=== PATIENT | female | born 1970 | race Caucasian/White ===

== ENCOUNTER 2020-07-04 16:14 | Inpatient (IN) | payer MEDICAID, SELFPAY ==
[2020-07-04 16:14] VITALS: BP 124/77; PULSE 97; RESP 16; TEMP 36.3; O2SAT 99
[2020-07-04 16:15] VITALS: BP 124/77; PULSE 96; RESP 18; TEMP 36.3; O2SAT 100; BMI 18.2
--- NOTE | 2020-07-04 16:31 | ED.VISSUMM ---
- ER Visit Summary Date of Service: 07/04/20 Chief Complaint: Detox from heroin History of Present Illness: The patient is a 49 F with no primary care physician. She reports that she snorts heroin and occasionally smokes crack cocaine. She denies any IV drug abuse. Last use of crack was yesterday. Last use of heroin was at 7:00 this morning. States that she is unsure whether it is heroin or fentanyl. Patient went through detox 1 year ago and was clean for approximately 6 months. Review of systems patient planes of chills and nausea from withdrawal. She denies any other complaints. Physical Examination: Vitals: Stable. Afebrile. General: Well-nourished and well-developed. Head: Normocephalic atraumatic. Neck: Supple, no lymphadenopathy. No JVD. Nontender. Cardiovascular: Regular rate and rhythm. No murmurs. Respiratory: No respiratory distress. Clear to auscultation bilaterally. Abdominal: Soft, nontender, nondistended, normal bowel sounds. No guarding, rebound, or peritoneal signs. Back: Nontender. Extremities: Nontender, no edema. Skin: Normal color, no rash. Neurologic: Alert and oriented ?3. Cranial nerves II through XII are intact. Normal strength and sensation. Psych: Normal affect. Test Results: [] Emergency Department Course and Treatment: Patient refused nausea medications. She is resting comfortably. Treatment Plan: Patient will be discussed the hospitalist and admitted for further evaluation and treatment. Disposition: Admitted in stable condition. Impression: 1. Opiate abuse. This note was generated with [employer] dictation software. It may contain incorrect words, spelling, and punctuation that were not noted in review of the chart prior to signing ED Disposition - Plan for ED Patient: Referrals: Care Physician,No Primary [Primary Care Provider] -
[2020-07-04 16:57] VITALS: BP 124/77; PULSE 96; RESP 18; TEMP 36.3; O2SAT 100
[2020-07-04 16:58] LABS: Absolute Lymphocyte Count 1.11 X10^3/uL (0.83-4.51); Absolute Neutrophil Count 3.9 X10^3/uL (2.0-7.7); Basophil# 0.02 X10^3/uL; Basophil% 0.4 % (0-1); Eosinophil# 0.04 X10^3/uL; Eosinophils% 0.8 % (0-5); Hematocrit 42.8 % (37-47); Hemoglobin 14.2 g/dL (12.0-15.0); Lymphocyte # 1.11 X10^3/ul (4.0); Lymphocyte % 21.3 % (19-41); Mean Corp Hgb Conc 33.2 g/dL (32-36); Mean Corpuscular Hgb 30.6 pg (27.0-32.0); Mean Corpuscular Volume 92.2 fL (81-99); Mean Platelet Vol. 9.9 fl (6.2-12.0); Monocyte# 0.18 X10^3/uL; Monocyte% 3.5 % (0-10); NRBC Flagged by Analyzer 0 % (0-5); Neutrophil # 3.85 X10^3/uL (2.7-7.7); Neutrophil % 73.8 % (47-70); Platelet Count 149 K/mm3 (150-450); RBC Distribution Width CV 13.9 % (11.6-14.6); RBC Distribution Width SD 47.4 fl (35.1-43.9); Red Blood Count 4.64 M/mm3 (4.2-5.4); White Blood Count 5.2 K/mm3 (4.4-11.0)
--- NOTE | 2020-07-04 17:00 | CM.ED ---
SOCIAL WORK Reason for Consult: Substance Abuse Met with patient in room. Patient requesting detox from heroin. Patient states last use was 7am today. Patient states has been battling opiate addiction for several years and has never been to detox/rehab. Educated patient on [facility]. Patient voices no questions or concerns at this time. This worker to update [facility] Treatment Navigator upon admission. Plan: Admit to [facility] Theodore Vega, RESIDENT BUYER, MOLDED RUBBER GOODS CUTTER
[2020-07-04 17:09] LABS: International Normalized Ratio 1.1; Prothrombin Time (Protime)PT. 13.7 SECONDS (11.7-14.9)
[2020-07-04 17:18] LABS: ALB/GLOB Ratio 0.9 RATIO (0.9-2.4); AST(SGOT) 17 U/L (15-37); Alanine Aminotransfer ALT/SGPT 16 U/L (13-56); Albumin, Serum 3.9 g/dL (3.2-5.0); Alkaline Phosphatase 70 U/L (45-117); Anion Gap 3 (5-15); BUN 13 mg/dL (7-18); BUN/Creat Ratio 15.6 RATIO (10-20); Calcium,Total 9.3 mg/dL (8.5-10.1); Chloride 103 mmol/L (98-107); Creatinine, Serum 0.83 mg/dL (0.55-1.02); EST Glomerular Filtration Rate 77 mL/min (>60); Est Glom Filt Rate - Afr Amer 94 mL/min (>60); Estimated Creatinine Clearance 65.17 ml/min; Globulin 4.2 g/dL (2.2-4.2); Glucose 134 mg/dL (74-106); Potassium 3.8 mmol/L (3.5-5.1); Protein, Total 8.1 g/dL (6.4-8.2); Sodium Level 135 mmol/L (136-145)
[2020-07-04 17:24] LABS: Amphetamine Urine VISTA NEGATIVE (<1000 ng/mL); Barbiturate Urine VISTA NEGATIVE (< 200 ng/mL); Benzodiazepine Urine VISTA NEGATIVE (< 200 ng/mL); Cocaine Urine VISTA POSITIVE (< 300 ng/mL); Ecstacy Urine VISTA NEGATIVE (< 500 ng/mL); Methadone Urine VISTA NEGATIVE (< 300 ng/mL); PCP Urine VISTA NEGATIVE (< 25 ng/mL); THC Urine VISTA NEGATIVE (< 50 ng/mL); Vista UDS pH Range 6
[2020-07-04 17:27] LABS: Alcohol, Blood (Medical)-Serum < 3.0 mg/dL
[2020-07-04 17:29] LABS: Internal QC Validated? YES +Cl - CLEAR BKGD; Pregnancy, Serum, hCG Quali. NEGATIVE Negative
--- NOTE | 2020-07-04 18:00 | ED.RN ---
called lab to verify if they had the urine tubes sent down for a UA. Urine is down there Lab to run test.
[2020-07-04 18:01] LABS: Bacteria 0 SEEN /hpf (None Seen); Mucous, Urine 0 SEEN /hpf (<or=2+); White Blood Cells 0 SEEN /hpf (0-5)
[2020-07-04 18:05] LABS: Color, Urine Yellow (Yellow); Glucose, Dipstick Normal (Normal); Ketone-Dipstick Negative (Negative); Leukocyte Esterase-Dipstick Negative /ul (Negative); Nitrite-Dipstick Negative (Negative); Occult Blood-Urine 10 /ul (Negative); Protein-Dipstick Negative (Negative); Urine Bilirubin Dipstick Negative (Negative); Urine Clarity Sl. Cloudy (Clear); Urine Urobilinogen Normal (Normal)
[2020-07-04 18:15] VITALS: BMI 17.9
[2020-07-04 18:17] VITALS: BP 102/65; PULSE 88; RESP 16; TEMP 36.9; O2SAT 100
[2020-07-04 18:20] VITALS: BMI 17.9
[2020-07-04 18:20] LABS: Red Blood Cells-Urine 0-5 SEEN /hpf (0-5); Squamous Epithelial Cells - UA 0-5 SEEN /hpf (5-10)
--- NOTE | 2020-07-04 18:35 | CM.ED ---
SOCIAL WORK Attempted multiple times to contact [facility] Treatment Navigator to update on patient's admission. Unable to leave message. Call to Gabby with [facility]. Left message on confidential voicemail updating on patient's admission to [facility]. Theodore Vega, ENGINEERING INSPECTION ASSISTANT, FURNACE FITTER
[2020-07-04] MEDS: Gabapentin 300 MG Capsule PO (18:59)
[2020-07-04] MEDS: Methocarbamol 750 MG Tablet 1500 MG PO (18:59)
[2020-07-04] MEDS: Buprenorphine HCl 2 MG TAB.SUBL SL (19:03)
--- NOTE | 2020-07-04 19:35 | HP.PCM_ITS ---
Problem List (1) Acute opioid withdrawal syndrome Status: Acute (2) Chronic opioid use and dependence Status: Chronic (3) Chronic nicotine use and dependence Status: Chronic (4) Chronic cigarette smoker Status: Chronic History of Present Illness Date of Admission: 07/04/20 Chief Complaint: Opioid use and withdrawal symptoms The patient is a 49 year old F with history of chronic opioid use, snorts heroin about 1 g daily and sometimes smokes crack cocaine came to ER for opioid withdrawal symptoms. Patient is having tremors, shaking's, restlessness, anxiety, diffuse muscle aches and pains. Denies diarrhea, nausea or vomiting. Patient denies IV heroin use. She denies history of HIV, hepatitis B or C. Patient last use of crack cocaine and heroin was yesterday. Patient had last detox about a year ago and was clean for 6 months and then relapsed. [] Past Medical History Past Medical History (Chronic Problems): Chronic Problems Chronic opioid use and dependence (Chronic) Chronic nicotine use and dependence (Chronic) Chronic cigarette smoker (Chronic) Allergies No Known Allergies Allergy (Verified 07/04/20 16:18) Smoking Status: Current every day smoker Tobacco Use: Cigarettes - *Family History Paternal History Items: Unknown Review of Systems Constitutional: Reports: Chills, Malaise, Weakness, Fatigue. Denies: Fever, Weight Change HEENT: Denies: Head Aches, Sinus Congestion, Sinus Drainage Cardiovascular: Denies: Chest Pain, Palpitations Respiratory: Denies: Cough, Shortness of breath at rest, Sputum production Gastrointestinal: Reports: Nausea. Denies: Abdominal Pain, Constipation, Diarrhea, Dyspepsia, Hematemesis, Hematochezia, Melena, Vomiting Genitourinary: Denies: Dysuria, Frequency, Hematuria, Urgency Musculoskeletal: Denies: Joint Pain, Joint Tenderness Skin: Denies: Rash, Wounds Neurological: Denies: Numbness, Tingling, Focal weakness Psychiatric: Reports: Anxiety, Depression. Denies: Homicidal Ideations, Suicidal Ideations Hematologic/ Lymphatic: Denies: Easy Bruising, Easy Bleeding VTE Information - Inpt Only VTE Present on Admission: No VTE Mechan Device Prophylaxis: None VTE Pharm Prophylaxis ordered?: Yes Objective: Physical exam General: Alert, Oriented x3, Cooperative, low body weight BMI 17.9 kg/m? HEENT: Atraumatic, PERRLA, EOMI, Normocephalic Oral: No Gingival or Mucosal Lesions/ Ulcerations Neck: Supple, No JVD, Negative Carotid Bruits Lungs: Air entry equal in bilateral lung bases. No crepitation/rhonchi Cardiovascular: Regular rate, Regular Rhythm, Normal S1, Normal S2, No murmurs Abdomen: Bowel Sounds Present, Soft, Non Tender, Non-Distended : No renal angle tenderness. No suprapubic tenderness. Extremities: Tremors and shaking in all 4 extremities. No edema, Capillary Refill Less than 3 Seconds Skin: No rashes, No breakdown Musculoskeletal: No Tenderness to Palpation of Joints or Extremities Neurological: Cranial nerves II-XII grossly intact, Deep Tendon Reflexes 2+/4 and Symmetrical, Neuro grossly intact Psych/Mental Status: Restless, anxious. Denies suicidal ideation, attempt. - Physical Exam Vitals/I&O's: Vital Signs Temp Pulse Resp BP Pulse Ox 98.4 F 88 16 102/65 100 07/04/20 18:17 07/04/20 18:17 07/04/20 18:17 07/04/20 18:17 07/04/20 18:17 Oxygen Delivery Method Room Air Weight: 107 lb 6.4 oz Body Mass Index (BMI) 17.9 Laboratory Results 07/04/20 16:45: WBC 5.2, RBC 4.64, Hgb 14.2, Hct 42.8, MCV 92.2, MCH 30.6, MCHC 33.2, RDW Std Deviation 47.4 H, RDW Coeff of Alex 13.9, Plt Count 149 L, MPV 9.9, Immature Gran % (Auto) 0.200, Neut % (Auto) 73.8 H, Lymph % (Auto) 21.3, [place] % (Auto) 3.5, Eos % (Auto) 0.8, Baso % (Auto) 0.4, Absolute Neuts (auto) 3.9, Absolute Lymphs (auto) 1.11, Nucleated RBC % 0 07/04/20 16:45: Sodium 135 L, Potassium 3.8, Chloride 103, Carbon Dioxide 29.0, Anion Gap 3 L, BUN 13, Creatinine 0.83, Estim Creat Clear Calc 65.17, Est GFR (MDRD) Af Amer 94, Est GFR (MDRD) Non-Af 77, BUN/Creatinine Ratio 15.6, Glucose 134 H, Calcium 9.3, Total Bilirubin 0.50, AST 17, ALT 16, Alkaline Phosphatase 70, Total Protein 8.1, Albumin 3.9, Globulin 4.2, Albumin/Globulin Ratio 0.9 07/04/20 16:45: Ethyl Alcohol < 3.0 07/04/20 16:45: PT 13.7, INR 1.1 07/04/20 16:45: Serum , Qual NEGATIVE 07/04/20 16:50: Urine Opiates Screen NEGATIVE, Urine Methadone Screen NEGATIVE, Ur Barbiturates Screen NEGATIVE, Ur Phencyclidine Scrn NEGATIVE, Ur Amphetamines Screen NEGATIVE, U Methamphetamin-MDMA NEGATIVE, U Benzodiazepines Scrn NEGATIVE, Urine Cocaine Screen POSITIVE H, U Cannabinoids Screen NEGATIVE, Ur Drug Screen Comment 07/04/20 16:50: Urine Color Yellow, Urine Clarity Sl. Cloudy, Urine pH 7.0, Ur Specific [place] 1.010, Urine Protein Negative, Urine Glucose (UA) Normal, Urine Ketones Negative, Urine Occult Blood 10 H, Urine Nitrite Negative, Urine Bilirubin Negative, Urine Urobilinogen Normal, Ur Leukocyte Esterase Negative, Urine RBC 0-5 SEEN, Urine WBC 0 SEEN, Ur Squamous Epith Cells 0-5 SEEN, Urine Bacteria 0 SEEN, Urine Mucus 0 SEEN Current Medications Acetaminophen (Acetaminophen 500 Mg Tablet) 500 mg PO Q4H PRN PRN PRN Reason: Temp > 100.4 F Al Hydroxide/Mg Hydroxide (Mag Hydrox/Al Hydrox/Simeth 30 Ml Udc) 30 ml PO Q6H PRN PRN PRN Reason: dyspesia Bisacodyl (Bisacodyl 10 Mg Suppository) 10 mg RC DAILY PRN PRN Reason: Constipation Buprenorphine HCl (Buprenorphine Hcl 2 Mg Tab.Subl) 4 mg SL Q8H GUERLINE; Taper Stop: 07/07/20 18:59 Last Admin: 07/04/20 19:03 Dose: 4 mg Documented by: Clonidine (Clonidine Hcl 0.1 Mg Tablet) 0.1 mg PO Q8H PRN PRN PRN Reason: RESTLESSNESS Dicyclomine HCl (Dicyclomine 10 Mg Capsule) 20 mg PO Q6H PRN PRN PRN Reason: Abdominal Discomfort Gabapentin (Gabapentin 300 Mg Capsule) 300 mg PO Q8H PRN PRN PRN Reason: moderate to severe anxiety Last Admin: 07/04/20 18:59 Dose: 300 mg Documented by: Hydroxyzine Pamoate (Hydroxyzine Radha 25 Mg Capsule) 50 mg PO Q6H PRN PRN PRN Reason: mild anxiety Lactated Ringer's () 1,000 mls @ 125 mls/hr IV .Q8H GUERLINE Stop: 07/05/20 02:25 Ibuprofen (Ibuprofen 600 Mg Tablet) 600 mg PO Q8H PRN PRN PRN Reason: PAIN 1-10 Loperamide HCl (Loperamide 2 Mg Capsule) 2 mg PO Q4H PRN PRN PRN Reason: LOOSE STOOLS Methocarbamol (Methocarbamol 750 Mg Tablet) 1,500 mg PO Q6H PRN PRN PRN Reason: MUSCLE SPASM Last Admin: 07/04/20 18:59 Dose: 1,500 mg Documented by: Nicotine (Nicotine 21 Mg Patch) 21 mg TD DAILY [facility] Nutritional Formula (Lactose Free) (Ensure Enlive 120 Ml Liquid) 120 ml PO 4X/DAY GUERLINE Ondansetron HCl (Ondansetron 8 Mg Tablet) 8 mg PO Q8H PRN PRN PRN Reason: NAUSEA Senna (Senna Tablet) 2 tablet PO QHS PRN PRN Reason: Constipation Sodium Chloride (0.9% Saline Lock 10 Ml Syringe) 10 - 40 ml IV UD PRN PRN Reason: SALINE FLUSH Trazodone HCl (Trazodone 100 Mg Tablet) 100 mg PO QHS PRN PRN PRN Reason: INSOMNIA Assessment/Plan All Active Problems Acute opioid withdrawal syndrome (Acute) This 41-year-old question gentleman admitted for acute opioid withdrawal syndrome. 1. Acute opioid withdrawal syndrome: Patient is on buprenorphine as scheduled and then taper as per opioid medical stabilization program. Patient is on other supportive medications including clonidine, Bentyl, Neurontin, hydroxyzine, Motrin, Imodium, methocarbamol, and trazodone as needed. Consult 180 tomorrow a.m. IV fluid Ringer lactate for 1 L as patient is dehydrated. 2. Chronic opioid use and dependence: Patient denies IV use. 3. History of crack cocaine: Patient heart rate is controlled 88. Blood pressure 124/77. 4. Chronic smoker, nicotine use and dependence: On nicotine patch VTE prophylaxis, moderate risk: Lovenox 40 mg subcu daily. Inpatient E&M: 69231 In Hosp L3
[2020-07-04] MEDS: Lactated Ringers 1,000 ML 125 ML IV (20:00)
[2020-07-04] MEDS: 0.9% Saline Lock 10 ML Syringe IV (20:02)
[2020-07-04] MEDS: traZODone 100 MG Tablet PO (20:07)
[2020-07-04] MEDS: Ibuprofen 600 MG Tablet PO (20:07)
[2020-07-04] MEDS: hydrOXYzine PAM 25 MG Capsule 50 MG PO (20:09)
[2020-07-05 01:00] VITALS: BP 101/69; PULSE 74; RESP 16; TEMP 37; O2SAT 97
[2020-07-05] MEDS: Methocarbamol 750 MG Tablet 1500 MG PO ×2 (01:03→18:36)
[2020-07-05 01:10] LABS: Hemoglobin A1c 5.8 % (3.8-5.6)
[2020-07-05] MEDS: hydrOXYzine PAM 25 MG Capsule 50 MG PO ×3 (02:52→18:37)
[2020-07-05] MEDS: Buprenorphine HCl 2 MG TAB.SUBL SL ×3 (02:52→18:36)
[2020-07-05 06:33] VITALS: BP 95/59; PULSE 76; RESP 16; TEMP 37.4; O2SAT 96
--- NOTE | 2020-07-05 07:47 | PN_ITS ---
Patient Problems: Active and Suspected Problems Acute opioid withdrawal syndrome (Acute) Reason for Visit: Acute opioid withdrawal Subjective: Patient is a 49-year-old lady with history of opiate dependence presented with acute opioid withdrawal. Admitted to regular nursing floor she is currently undergoing medical stabilization Objective: GENERAL: cooperative HEENT: Atraumatic; EYES; Anicteric, Normal Conjunctiva NECK; supple, normal thyroid, RESPIRATORY: Diminished to auscultation CARDIOVASCULAR: Regular S1 S2, GI: soft, normoactive bowel sounds, : No Renal angle tenderness; EXTREMITIES: No edema, no clubbing, MUSCULOSKELETAL: no muscle waisting NEURO: Awake; no lateralizing signs. SKIN: No Rash PSYCH; Flat affect Vitals/I&O's: Vital Signs Temp Pulse Resp BP Pulse Ox 99.3 F H 76 16 95/59 L 96 07/05/20 06:33 07/05/20 06:33 07/05/20 06:33 07/05/20 06:33 07/05/20 06:33 Oxygen Delivery Method Room Air Weight: 48.716 kg Body Mass Index (BMI) 17.9 Intake and Output for Last 24 Hours 07/03/20 07/04/20 07/05/20 23:59 23:59 23:59 Intake Total 1200 / 1200 Output Total 0 / 0 Balance 1200 / 1200 Laboratory Results 07/04/20 16:45: WBC 5.2, RBC 4.64, Hgb 14.2, Hct 42.8, MCV 92.2, MCH 30.6, MCHC 33.2, RDW Std Deviation 47.4 H, RDW Coeff of Alex 13.9, Plt Count 149 L, MPV 9.9, Immature Gran % (Auto) 0.200, Neut % (Auto) 73.8 H, Lymph % (Auto) 21.3, [place] % (Auto) 3.5, Eos % (Auto) 0.8, Baso % (Auto) 0.4, Absolute Neuts (auto) 3.9, Absolute Lymphs (auto) 1.11, Nucleated RBC % 0 07/04/20 16:45: Sodium 135 L, Potassium 3.8, Chloride 103, Carbon Dioxide 29.0, Anion Gap 3 L, BUN 13, Creatinine 0.83, Estim Creat Clear Calc 65.17, Est GFR (MDRD) Af Amer 94, Est GFR (MDRD) Non-Af 77, BUN/Creatinine Ratio 15.6, Glucose 134 H, Calcium 9.3, Total Bilirubin 0.50, AST 17, ALT 16, Alkaline Phosphatase 70, Total Protein 8.1, Albumin 3.9, Globulin 4.2, Albumin/Globulin Ratio 0.9 07/04/20 16:45: Ethyl Alcohol < 3.0 07/04/20 16:45: PT 13.7, INR 1.1 07/04/20 16:45: Serum , Qual NEGATIVE 07/04/20 16:45: Hemoglobin A1c 5.8 H 07/04/20 16:50: Urine Opiates Screen NEGATIVE, Urine Methadone Screen NEGATIVE, Ur Barbiturates Screen NEGATIVE, Ur Phencyclidine Scrn NEGATIVE, Ur Amphetamines Screen NEGATIVE, U Methamphetamin-MDMA NEGATIVE, U Benzodiazepines Scrn NEGATIVE, Urine Cocaine Screen POSITIVE H, U Cannabinoids Screen NEGATIVE, Ur Drug Screen Comment 07/04/20 16:50: Urine Color Yellow, Urine Clarity Sl. Cloudy, Urine pH 7.0, Ur Specific [place] 1.010, Urine Protein Negative, Urine Glucose (UA) Normal, Urine Ketones Negative, Urine Occult Blood 10 H, Urine Nitrite Negative, Urine Bilirubin Negative, Urine Urobilinogen Normal, Ur Leukocyte Esterase Negative, Urine RBC 0-5 SEEN, Urine WBC 0 SEEN, Ur Squamous Epith Cells 0-5 SEEN, Urine Bacteria 0 SEEN, Urine Mucus 0 SEEN Current Medications Acetaminophen (Acetaminophen 500 Mg Tablet) 500 mg PO Q4H PRN PRN PRN Reason: Temp > 100.4 F Al Hydroxide/Mg Hydroxide (Mag Hydrox/Al Hydrox/Simeth 30 Ml Udc) 30 ml PO Q6H PRN PRN PRN Reason: dyspesia Bisacodyl (Bisacodyl 10 Mg Suppository) 10 mg RC DAILY PRN PRN Reason: Constipation Buprenorphine HCl (Buprenorphine Hcl 2 Mg Tab.Subl) 4 mg SL Q8H GUERLINE; Taper Stop: 07/07/20 18:59 Last Admin: 07/05/20 02:52 Dose: 4 mg Documented by: Clonidine (Clonidine Hcl 0.1 Mg Tablet) 0.1 mg PO Q8H PRN PRN PRN Reason: RESTLESSNESS Dicyclomine HCl (Dicyclomine 10 Mg Capsule) 20 mg PO Q6H PRN PRN PRN Reason: Abdominal Discomfort Gabapentin (Gabapentin 300 Mg Capsule) 300 mg PO Q8H PRN PRN PRN Reason: moderate to severe anxiety Last Admin: 07/04/20 18:59 Dose: 300 mg Documented by: Hydroxyzine Pamoate (Hydroxyzine Radha 25 Mg Capsule) 50 mg PO Q6H PRN PRN PRN Reason: mild anxiety Last Admin: 07/05/20 02:52 Dose: 50 mg Documented by: Ibuprofen (Ibuprofen 600 Mg Tablet) 600 mg PO Q8H PRN PRN PRN Reason: PAIN 1-10 Last Admin: 07/04/20 20:07 Dose: 600 mg Documented by: Loperamide HCl (Loperamide 2 Mg Capsule) 2 mg PO Q4H PRN PRN PRN Reason: LOOSE STOOLS Methocarbamol (Methocarbamol 750 Mg Tablet) 1,500 mg PO Q6H PRN PRN PRN Reason: MUSCLE SPASM Last Admin: 07/05/20 01:03 Dose: 1,500 mg Documented by: Nicotine (Nicotine 21 Mg Patch) 21 mg TD DAILY [facility] Last Admin: 07/04/20 20:10 Dose: 21 mg Documented by: Nutritional Formula (Lactose Free) (Ensure Enlive 120 Ml Liquid) 120 ml PO 4X/DAY [facility] Last Admin: 07/04/20 20:12 Dose: 120 ml Documented by: Ondansetron HCl (Ondansetron 8 Mg Tablet) 8 mg PO Q8H PRN PRN PRN Reason: NAUSEA Senna (Senna Tablet) 2 tablet PO QHS PRN PRN Reason: Constipation Sodium Chloride (0.9% Saline Lock 10 Ml Syringe) 10 - 40 ml IV UD PRN PRN Reason: SALINE FLUSH Last Admin: 07/04/20 20:02 Dose: 10 ml Documented by: Trazodone HCl (Trazodone 100 Mg Tablet) 100 mg PO QHS PRN PRN PRN Reason: INSOMNIA Last Admin: 07/04/20 20:07 Dose: 100 mg Documented by: STROKE Vital Signs/Narrative: Vital Signs Temp Pulse Resp BP Pulse Ox 07/05/20 06:33 99.3 F H 76 16 95/59 L 96 Medical Necessity - Tobacco Use Smoking Status: Current every day smoker Tobacco Use: Cigarettes Assessment/Plan All Active Problems Acute opioid withdrawal syndrome (Acute) Patient is a 49-year-old lady with history of opiate dependence presented with acute opioid withdrawal. Admitted to regular nursing floor she is currently undergoing medical stabilization 1. Acute opioid withdrawal ?Admitted to regular nursing floor currently undergoing medical stabilization using Subutex 2. Polysubstance abuse including opioids and crack cocaine counseled on cessation 3. Tobacco dependence - Counseled on cessation, offered nicotine patch for tobacco cravings 4. Severe protein calorie malnutrition ?As evidenced by low BMI of 17.9, decreased energy level as well as muscle wasting patient has been seen in consultation by dietitian 5. DVT prophylaxis ?Lovenox Inpatient E&M: 15879 Subs Hosp L2
--- NOTE | 2020-07-05 09:43 | ADDICTION ---
This life insurance underwriter met with PT in her room to conduct ASAM, MSE, DUDIT assessments and to plan to d/c. PT A+Ox4 and participated appropriately. All documentation completed, faxed to [facility] and placed in PT's chart. PT to directly admit into [facility] ([facility]) on Thursday following discharge from [facility]. PT amiable to this plan. [employer] to coordinate transportation.
--- NOTE | 2020-07-05 10:18 | NT.THERAPY_ITS ---
Nutrition Therapy Report - History Nutrition Services has been consulted to:: Manage nutrient details of diet order Current diet / nutrition support order:: Regular, Ensure Enlive 120 ml 4x/day [facility] - Anthropometric Measurements Height:: 5 ft 5 in Weight:: 48.716 kg Body Mass Index (BMI):: 17.9 - Relevant Labs Relevant Labs:: RDW Std Deviation 47.4 fl (35.1-43.9) H 07/04/20 16:45 Plt Count 149 K/mm3 (150-450) L 07/04/20 16:45 Neut % (Auto) 73.8 % (47-70) H 07/04/20 16:45 Sodium 135 mmol/L (136-145) L 07/04/20 16:45 Anion Gap 3 (5-15) L 07/04/20 16:45 Glucose 134 mg/dL (74-106) H 07/04/20 16:45 Hemoglobin A1c 5.8 % (3.8-5.6) H 07/04/20 16:45 - Assessment Food / Nutrition-Related History:: 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 Pt consumed 25% b-fast meal this a.m. Notes unintentional wt loss w/ UBW 140 lbs 1 year ago w/ wt loss to 107 lbs- CBW 107.4 lbs indicating wt loss 23% x 1 year severe. - Nutrition Diagnosis Problem / Etiology / Signs & Symptoms (PES):: Severe malnutrition in the context of environmental, behavioral and/or social circumstances RT inadequate oral intake AEB reported unintentional wt loss 32.6#/23% x 12 months, consuming </=50% energy intake compared to estimated energy needs >/=3months, and BMI 17 .9. Evidence of Malnutrition Exists:: Yes Severe PCM:: Social & Environmental circumstances - Nutrition Intervention Nutrition Prescription:: [id number] calories, 45-55 g protein - Food / Nutrient Delivery Interventions Nutrition support ordered as / adjusted to:: Continue Regular diet. Will provide Ensure Pudding w/ pt meals & continue Ensure Enlive 120 ml 4x/day at [facility]. Nutrition education provided?: No - MNT Monitoring Further MNT monitoring and evaluation required?: Yes MNT Follow-up in:: 3-5 days
[2020-07-05 10:22] VITALS: BMI 17.9
[2020-07-05 10:30] VITALS: BP 112/70; PULSE 92; RESP 18; TEMP 37; O2SAT 97
[2020-07-05] MEDS: Ibuprofen 600 MG Tablet PO ×2 (10:39→18:36)
[2020-07-05 14:29] VITALS: BP 104/59; PULSE 75; RESP 16; TEMP 36.7; O2SAT 97
--- NOTE | 2020-07-05 16:42 | NURSING ---
reviewed and agree with charting by JAXSON Higgins
[2020-07-05 21:00] VITALS: BP 107/73; PULSE 75; RESP 18; TEMP 36.9; O2SAT 99
[2020-07-05] MEDS: traZODone 100 MG Tablet PO (21:07)
[2020-07-05] MEDS: Gabapentin 300 MG Capsule PO (21:07)
[2020-07-05] MEDS: Acetaminophen 500 MG Tablet PO (21:07)
[2020-07-06 02:58] VITALS: BP 108/62; PULSE 81; RESP 16; TEMP 36.8; O2SAT 97
--- NOTE | 2020-07-06 07:46 | PN_ITS ---
Patient Problems: Active and Suspected Problems Acute opioid withdrawal syndrome (Acute) Reason for Visit: Acute opioid withdrawal Subjective: Patient is a 49-year-old lady with history of opiate dependence presented with acute opioid withdrawal. Admitted to regular nursing floor she is currently undergoing medical stabilization 07/06/2020; patient seen currently complains of low back pain. Objective: GENERAL: cooperative HEENT: Atraumatic; EYES; Anicteric, Normal Conjunctiva NECK; supple, normal thyroid, RESPIRATORY: Diminished to auscultation CARDIOVASCULAR: Regular S1 S2, GI: soft, normoactive bowel sounds, : No Renal angle tenderness; EXTREMITIES: No edema, no clubbing, MUSCULOSKELETAL: no muscle waisting NEURO: Awake; no lateralizing signs. SKIN: No Rash PSYCH; Flat affect Vitals/I&O's: Vital Signs Temp Pulse Resp BP Pulse Ox 98.3 F 81 16 108/62 97 07/06/20 02:58 07/06/20 02:58 07/06/20 02:58 07/06/20 02:58 07/06/20 02:58 Oxygen Delivery Method Room Air Weight: 48.716 kg Body Mass Index (BMI) 17.9 Intake and Output for Last 24 Hours 07/04/20 07/05/20 07/06/20 23:59 23:59 23:59 Intake Total 1700 / 1700 Output Total 0 / 0 Balance 1700 / 1700 Current Medications Acetaminophen (Acetaminophen 500 Mg Tablet) 500 mg PO Q4H PRN PRN PRN Reason: Temp > 100.4 F Last Admin: 07/05/20 21:07 Dose: 500 mg Documented by: Al Hydroxide/Mg Hydroxide (Mag Hydrox/Al Hydrox/Simeth 30 Ml Udc) 30 ml PO Q6H PRN PRN PRN Reason: dyspesia Bisacodyl (Bisacodyl 10 Mg Suppository) 10 mg RC DAILY PRN PRN Reason: Constipation Buprenorphine HCl (Buprenorphine Hcl 2 Mg Tab.Subl) 2 mg SL Q8H GUERLINE; Taper Stop: 07/07/20 18:59 Last Admin: 07/06/20 02:55 Dose: Not Given Documented by: Clonidine (Clonidine Hcl 0.1 Mg Tablet) 0.1 mg PO Q8H PRN PRN PRN Reason: RESTLESSNESS Dicyclomine HCl (Dicyclomine 10 Mg Capsule) 20 mg PO Q6H PRN PRN PRN Reason: Abdominal Discomfort Gabapentin (Gabapentin 300 Mg Capsule) 300 mg PO Q8H PRN PRN PRN Reason: moderate to severe anxiety Last Admin: 07/05/20 21:07 Dose: 300 mg Documented by: Hydroxyzine Pamoate (Hydroxyzine Radha 25 Mg Capsule) 50 mg PO Q6H PRN PRN PRN Reason: mild anxiety Last Admin: 07/05/20 18:37 Dose: 50 mg Documented by: Ibuprofen (Ibuprofen 600 Mg Tablet) 600 mg PO Q8H PRN PRN PRN Reason: PAIN 1-10 Last Admin: 07/05/20 18:36 Dose: 600 mg Documented by: Loperamide HCl (Loperamide 2 Mg Capsule) 2 mg PO Q4H PRN PRN PRN Reason: LOOSE STOOLS Methocarbamol (Methocarbamol 750 Mg Tablet) 1,500 mg PO Q6H PRN PRN PRN Reason: MUSCLE SPASM Last Admin: 07/05/20 18:36 Dose: 1,500 mg Documented by: Nicotine (Nicotine 21 Mg Patch) 21 mg TD DAILY REPLACED BY [facility] Last Admin: 07/05/20 10:34 Dose: 21 mg Documented by: Nutritional Formula (Lactose Free) (Ensure Enlive 120 Ml Liquid) 120 ml PO 4X/DAY REPLACED BY [facility] Last Admin: 07/05/20 21:09 Dose: 120 ml Documented by: Ondansetron HCl (Ondansetron 8 Mg Tablet) 8 mg PO Q8H PRN PRN PRN Reason: NAUSEA Senna (Senna Tablet) 2 tablet PO QHS PRN PRN Reason: Constipation Sodium Chloride (0.9% Saline Lock 10 Ml Syringe) 10 - 40 ml IV UD PRN PRN Reason: SALINE FLUSH Last Admin: 07/04/20 20:02 Dose: 10 ml Documented by: Trazodone HCl (Trazodone 100 Mg Tablet) 100 mg PO QHS PRN PRN PRN Reason: INSOMNIA Last Admin: 07/05/20 21:07 Dose: 100 mg Documented by: Medical Necessity - Tobacco Use Smoking Status: Current every day smoker Tobacco Use: Cigarettes Assessment/Plan All Active Problems Acute opioid withdrawal syndrome (Acute) Patient is a 49-year-old lady with history of opiate dependence presented with acute opioid withdrawal. Admitted to regular nursing floor she is currently un dergoing medical stabilization 1. Acute opioid withdrawal ?Admitted to regular nursing floor currently undergoing medical stabilization using Subutex -07/06/2020; patient seen currently complains of low back pain. 2. Polysubstance abuse including opioids and crack cocaine counseled on cessation 3. Tobacco dependence - Counseled on cessation, offered nicotine patch for tobacco cravings 4. Severe protein calorie malnutrition ?As evidenced by low BMI of 17.9, decreased energy level as well as muscle wasting patient has been seen in consultation by dietitian 5. DVT prophylaxis ?[facility] Inpatient E&M: 39394 Subs Hosp L2
[2020-07-06] MEDS: Ibuprofen 600 MG Tablet PO (09:49)
[2020-07-06 10:00] VITALS: BP 104/71; PULSE 81; RESP 18; TEMP 36.7; O2SAT 97
--- NOTE | 2020-07-06 10:24 | ADDICTION ---
This publications writer met with PT in her room to finalize d/c plan. PT is scheduled to directly admit into [facility] residential treatment on Thursday immediately following d/c from [facility]. PT amiable. [employer] to provide transportation.
[2020-07-06 13:48] VITALS: BP 113/83; PULSE 88; RESP 18; TEMP 37; O2SAT 99
[2020-07-06] MEDS: Methocarbamol 750 MG Tablet 1500 MG PO (14:06)
[2020-07-06] MEDS: hydrOXYzine PAM 25 MG Capsule 50 MG PO ×2 (14:06→21:26)
[2020-07-06] MEDS: Acetaminophen 500 MG Tablet PO (14:07)
[2020-07-06] MEDS: Lidocaine 5% Patch 1 PATCH TOPICAL (14:41)
--- NOTE | 2020-07-06 17:17 | NURSING ---
reviewed and agree with documentation by JAXSON Higgins
[2020-07-06 17:57] VITALS: BP 101/60; PULSE 81; RESP 18; TEMP 36.9; O2SAT 100
[2020-07-06 21:10] VITALS: BP 123/68; PULSE 75; RESP 16; TEMP 36.6; O2SAT 95
[2020-07-06] MEDS: traZODone 100 MG Tablet PO (21:26)
[2020-07-06] MEDS: Gabapentin 300 MG Capsule PO (21:26)
[2020-07-07 06:00] VITALS: BP 99/59; PULSE 81; RESP 16; TEMP 37; O2SAT 94
--- NOTE | 2020-07-07 07:40 | DCINST_ITS ---
- Discharge Diagnoses Current Active Problems: Current Active and Chronic Problems Acute opioid withdrawal syndrome (Acute) Chronic opioid use and dependence (Chronic) Chronic nicotine use and dependence (Chronic) Chronic cigarette smoker (Chronic) You will use the following diet at home:: Regular Allergies/Adverse Reactions: Allergies No Known Allergies Allergy (Verified 07/04/20 16:18) Primary Care Physician: Care Physician,No Primary [Primary Care Provider] - Test Results: Test results from this visit will be discussed in further detail at your follow- up appointment, if applicable. Please Follow Up With: 180 When: as scheduled Proposed Discharge Date: 07/07/20
--- NOTE | 2020-07-07 07:42 | PCM.DC.SUM ---
Discharge Date and Diagnosis - Problem List Patient Problems: Active and Suspected Problems Acute opioid withdrawal syndrome (Acute) Date of Admission: 07/04/20 - Primary Discharge Diagnosis Acute Problems: Active Problems Acute opioid withdrawal syndrome (Acute) - Secondary Discharge Diagnosis Chronic Problems: Chronic Problems Chronic opioid use and dependence (Chronic) Chronic nicotine use and dependence (Chronic) Chronic cigarette smoker (Chronic) Hospital Course and Treatment Summary of Care Provided: The patient is a 49 year old F [] Patient Problems: Active and Suspected Problems Acute opioid withdrawal syndrome (Acute) - Physical Exam Vitals/I&O's: Vital Signs Temp Pulse Resp BP Pulse Ox 98.6 F 81 16 99/59 L 94 07/07/20 06:00 07/07/20 06:00 07/07/20 06:00 07/07/20 06:00 07/07/20 06:00 Oxygen Delivery Method Room Air Weight: 48.716 kg Body Mass Index (BMI) 17.9 Intake and Output for Last 24 Hours 07/05/20 07/06/20 07/07/20 23:59 23:59 23:59 Intake Total 1700 / 1700 1050 / 1050 Output Total 0 / 0 Balance 1700 / 1700 1050 / 1050 Current Medications Acetaminophen (Acetaminophen 500 Mg Tablet) 500 mg PO Q4H PRN PRN PRN Reason: Temp > 100.4 F Last Admin: 07/06/20 14:07 Dose: 500 mg Documented by: Al Hydroxide/Mg Hydroxide (Mag Hydrox/Al Hydrox/Simeth 30 Ml Udc) 30 ml PO Q6H PRN PRN PRN Reason: dyspesia Bisacodyl (Bisacodyl 10 Mg Suppository) 10 mg RC DAILY PRN PRN Reason: Constipation Buprenorphine HCl (Buprenorphine Hcl 2 Mg Tab.Subl) 2 mg SL Q12H GUERLINE; Taper Stop: 07/07/20 18:59 Last Admin: 07/07/20 06:23 Dose: Not Given Documented by: Clonidine (Clonidine Hcl 0.1 Mg Tablet) 0.1 mg PO Q8H PRN PRN PRN Reason: RESTLESSNESS Dicyclomine HCl (Dicyclomine 10 Mg Capsule) 20 mg PO Q6H PRN PRN PRN Reason: Abdominal Discomfort Gabapentin (Gabapentin 300 Mg Capsule) 300 mg PO Q8H PRN PRN PRN Reason: moderate to severe anxiety Last Admin: 07/06/20 21:26 Dose: 300 mg Documented by: Hydroxyzine Pamoate (Hydroxyzine Radha 25 Mg Capsule) 50 mg PO Q6H PRN PRN PRN Reason: mild anxiety Last Admin: 07/06/20 21:26 Dose: 50 mg Documented by: Ibuprofen (Ibuprofen 600 Mg Tablet) 600 mg PO Q8H PRN PRN PRN Reason: PAIN 1-10 Last Admin: 07/06/20 09:49 Dose: 600 mg Documented by: Loperamide HCl (Loperamide 2 Mg Capsule) 2 mg PO Q4H PRN PRN PRN Reason: LOOSE STOOLS Methocarbamol (Methocarbamol 750 Mg Tablet) 1,500 mg PO Q6H PRN PRN PRN Reason: MUSCLE SPASM Last Admin: 07/06/20 14:06 Dose: 1,500 mg Documented by: Nicotine (Nicotine 21 Mg Patch) 21 mg TD DAILY GUERLINE Last Admin: 07/06/20 09:49 Dose: 21 mg Documented by: Nutritional Formula (Lactose Free) (Ensure Enlive 120 Ml Liquid) 120 ml PO 4X/DAY [facility]ER[facility] Last Admin: 07/06/20 21:26 Dose: 120 ml Documented by: Ondansetron HCl (Ondansetron 8 Mg Tablet) 8 mg PO Q8H PRN PRN PRN Reason: NAUSEA Senna (Senna Tablet) 2 tablet PO QHS PRN PRN Reason: Constipation Sodium Chloride (0.9% Saline Lock 10 Ml Syringe) 10 - 40 ml IV UD PRN PRN Reason: SALINE FLUSH Last Admin: 07/04/20 20:02 Dose: 10 ml Documented by: Trazodone HCl (Trazodone 100 Mg Tablet) 100 mg PO QHS PRN PRN PRN Reason: INSOMNIA Last Admin: 07/06/20 21:26 Dose: 100 mg Documented by: Primary Care Physician: Care Physician,No Primary [Primary Care Provider] - Please Follow Up With: 180 When: as scheduled Medical Necessity - Tobacco Use Smoking Status: Current every day smoker Tobacco Use: Cigarettes
[2020-07-07 09:10] VITALS: PULSE 100
--- NOTE | 2020-07-07 09:37 | PCM.PN.HOSP ---
Patient Problems: Active and Suspected Problems Acute opioid withdrawal syndrome (Acute) Reason for Visit: Acute opioid withdrawal. Subjective: Patient complaining of low back pain. Ordered Lidoderm patch for pain control. Plan is for patient to be kept through the weekend to be picked up directly and discharged to [facility] Objective: GENERAL: cooperative HEENT: Atraumatic; EYES; Anicteric, Normal Conjunctiva NECK; supple, normal thyroid, RESPIRATORY: Diminished to auscultation CARDIOVASCULAR: Regular S1 S2, GI: soft, normoactive bowel sounds, : No Renal angle tenderness; EXTREMITIES: No edema, no clubbing, MUSCULOSKELETAL: no muscle waisting NEURO: Awake; no lateralizing signs. SKIN: No Rash PSYCH; Flat affect Vitals/I&O's: Vital Signs Temp Pulse Resp BP Pulse Ox 98.6 F 100 16 99/59 L 94 07/07/20 06:00 07/07/20 09:10 07/07/20 06:00 07/07/20 06:00 07/07/20 06:00 Oxygen Delivery Method Room Air Weight: 48.716 kg Body Mass Index (BMI) 17.9 Intake and Output for Last 24 Hours 07/05/20 07/06/20 07/07/20 23:59 23:59 23:59 Intake Total 1700 / 1700 1050 / 1050 Output Total 0 / 0 Balance 1700 / 1700 1050 / 1050 Current Medications Acetaminophen (Acetaminophen 500 Mg Tablet) 500 mg PO Q4H PRN PRN PRN Reason: Temp > 100.4 F Last Admin: 07/06/20 14:07 Dose: 500 mg Documented by: Al Hydroxide/Mg Hydroxide (Mag Hydrox/Al Hydrox/Simeth 30 Ml Udc) 30 ml PO Q6H PRN PRN PRN Reason: dyspesia Bisacodyl (Bisacodyl 10 Mg Suppository) 10 mg RC DAILY PRN PRN Reason: Constipation Buprenorphine HCl (Buprenorphine Hcl 2 Mg Tab.Subl) 2 mg SL Q12H GUERLINE; Taper Stop: 07/07/20 18:59 Last Admin: 07/07/20 06:23 Dose: Not Given Documented by: Clonidine (Clonidine Hcl 0.1 Mg Tablet) 0.1 mg PO Q8H PRN PRN PRN Reason: RESTLESSNESS Dicyclomine HCl (Dicyclomine 10 Mg Capsule) 20 mg PO Q6H PRN PRN PRN Reason: Abdominal Discomfort Gabapentin (Gabapentin 300 Mg Capsule) 300 mg PO Q8H PRN PRN PRN Reason: moderate to severe anxiety Last Admin: 07/06/20 21:26 Dose: 300 mg Documented by: Hydroxyzine Pamoate (Hydroxyzine Radha 25 Mg Capsule) 50 mg PO Q6H PRN PRN PRN Reason: mild anxiety Last Admin: 07/06/20 21:26 Dose: 50 mg Documented by: Ibuprofen (Ibuprofen 600 Mg Tablet) 600 mg PO Q8H PRN PRN PRN Reason: PAIN 1-10 Last Admin: 07/06/20 09:49 Dose: 600 mg Documented by: Loperamide HCl (Loperamide 2 Mg Capsule) 2 mg PO Q4H PRN PRN PRN Reason: LOOSE STOOLS Methocarbamol (Methocarbamol 750 Mg Tablet) 1,500 mg PO Q6H PRN PRN PRN Reason: MUSCLE SPASM Last Admin: 07/06/20 14:06 Dose: 1,500 mg Documented by: Nicotine (Nicotine 21 Mg Patch) 21 mg TD DAILY [facility] Last Admin: 07/07/20 09:11 Dose: 21 mg Documented by: Nutritional Formula (Lactose Free) (Ensure Enlive 120 Ml Liquid) 120 ml PO 4X/DAY [facility] Last Admin: 07/07/20 09:10 Dose: Not Given Documented by: Ondansetron HCl (Ondansetron 8 Mg Tablet) 8 mg PO Q8H PRN PRN PRN Reason: NAUSEA Senna (Senna Tablet) 2 tablet PO QHS PRN PRN Reason: Constipation Sodium Chloride (0.9% Saline Lock 10 Ml Syringe) 10 - 40 ml IV UD PRN PRN Reason: SALINE FLUSH Last Admin: 07/04/20 20:02 Dose: 10 ml Documented by: Trazodone HCl (Trazodone 100 Mg Tablet) 100 mg PO QHS PRN PRN PRN Reason: INSOMNIA Last Admin: 07/06/20 21:26 Dose: 100 mg Documented by: STROKE Vital Signs/Narrative: Vital Signs Temp Pulse Resp BP Pulse Ox 07/07/20 09:10 100 07/07/20 06:00 98.6 F 81 16 99/59 L 94 Medical Necessity - Tobacco Use Smoking Status: Current every day smoker Tobacco Use: Cigarettes Assessment/Plan All Active Problems Acute opioid withdrawal syndrome (Acute) Patient is a 49-year-old lady with history of opiate dependence presented with acute opioid withdrawal. Admitted to regular nursing floor she is currently undergoing medical stabilization 1. Acute opioid withdrawal ?Admitted to regular nursing floor currently undergoing medical stabilization using Subutex -07/06/2020; patient seen currently complains of low back pain. -07/07/2020 patient complaining of low back pain. Ordered Lidoderm patch for pain control. Plan is for patient to be kept through the weekend to be picked up directly and discharged to [facility] 2. Polysubstance abuse including opioids and crack cocaine counseled on cessation 3. Tobacco dependence - Counseled on cessation, offered nicotine patch for tobacco cravings 4. Severe protein calorie malnutrition ?As evidenced by low BMI of 17.9, decreased energy level as well as muscle wasting patient has been seen in consultation by dietitian 5. DVT prophylaxis ?Lovenox Inpatient E&M: 07781 Subs Hosp L2
--- NOTE | 2020-07-07 10:48 | DS.PCM_ITS ---
Discharge Date and Diagnosis - Problem List Patient Problems: Active and Suspected Problems Acute opioid withdrawal syndrome (Acute) Date of Admission: 07/04/20 Date of Discharge: 07/07/20 - Primary Discharge Diagnosis Acute Problems: Active Problems Acute opioid withdrawal syndrome (Acute) - Secondary Discharge Diagnosis Chronic Problems: Chronic Problems Chronic opioid use and dependence (Chronic) Chronic nicotine use and dependence (Chronic) Chronic cigarette smoker (Chronic) Hospital Course and Treatment Summary of Care Provided: Patient is a 49-year-old lady with history of opiate dependence presented with acute opioid withdrawal. Admitted to regular nursing floor she is currently undergoing medical stabilization 1. Acute opioid withdrawal ?Admitted to regular nursing floor currently undergoing medical stabilization using Subutex -Patient to have been kept through 07/09/2020 and to be discharged [180 however she insisted on being discharged on 07/07/2020 2. Polysubstance abuse including opioids and crack cocaine counseled on cessation 3. Tobacco dependence - Counseled on cessation, offered nicotine patch for tobacco cravings 4. Severe protein calorie malnutrition ?As evidenced by low BMI of 17.9, decreased energy level as well as muscle wasting patient has been seen in consultation by dietitian 5. DVT prophylaxis ?Lovenox Patient Problems: Active and Suspected Problems Acute opioid withdrawal syndrome (Acute) - Physical Exam Vitals/I&O's: Vital Signs Temp Pulse Resp BP Pulse Ox 98.6 F 100 16 99/59 L 94 07/07/20 06:00 07/07/20 09:10 07/07/20 06:00 07/07/20 06:00 07/07/20 06:00 Oxygen Delivery Method Room Air Weight: 48.716 kg Body Mass Index (BMI) 17.9 Intake and Output for Last 24 Hours 07/05/20 07/06/20 07/07/20 23:59 23:59 23:59 Intake Total 1700 / 1700 1050 / 1050 Output Total 0 / 0 Balance 1700 / 1700 1050 / 1050 General: Alert HEENT: Atraumatic Neck: Supple Psych/Mental Status: Normal Affect Current Medications Acetaminophen (Acetaminophen 500 Mg Tablet) 500 mg PO Q4H PRN PRN PRN Reason: Temp > 100.4 F Last Admin: 07/06/20 14:07 Dose: 500 mg Documented by: Al Hydroxide/Mg Hydroxide (Mag Hydrox/Al Hydrox/Simeth 30 Ml Udc) 30 ml PO Q6H PRN PRN PRN Reason: dyspesia Bisacodyl (Bisacodyl 10 Mg Suppository) 10 mg RC DAILY PRN PRN Reason: Constipation Buprenorphine HCl (Buprenorphine Hcl 2 Mg Tab.Subl) 2 mg SL Q12H GUERLINE; Taper Stop: 07/07/20 18:59 Last Admin: 07/07/20 06:23 Dose: Not Given Documented by: Clonidine (Clonidine Hcl 0.1 Mg Tablet) 0.1 mg PO Q8H PRN PRN PRN Reason: RESTLESSNESS Dicyclomine HCl (Dicyclomine 10 Mg Capsule) 20 mg PO Q6H PRN PRN PRN Reason: Abdominal Discomfort Gabapentin (Gabapentin 300 Mg Capsule) 300 mg PO Q8H PRN PRN PRN Reason: moderate to severe anxiety Last Admin: 07/06/20 21:26 Dose: 300 mg Documented by: Hydroxyzine Pamoate (Hydroxyzine Radha 25 Mg Capsule) 50 mg PO Q6H PRN PRN PRN Reason: mild anxiety Last Admin: 07/06/20 21:26 Dose: 50 mg Documented by: Ibuprofen (Ibuprofen 600 Mg Tablet) 600 mg PO Q8H PRN PRN PRN Reason: PAIN 1-10 Last Admin: 07/06/20 09:49 Dose: 600 mg Documented by: Lidocaine (Lidocaine 5% Patch) 1 patch TOPICAL DAILY [facility]; Protocol Last Admin: 07/07/20 09:50 Dose: Not Given Documented by: Loperamide HCl (Loperamide 2 Mg Capsule) 2 mg PO Q4H PRN PRN PRN Reason: LOOSE STOOLS Methocarbamol (Methocarbamol 750 Mg Tablet) 1,500 mg PO Q6H PRN PRN PRN Reason: MUSCLE SPASM Last Admin: 07/06/20 14:06 Dose: 1,500 mg Documented by: Nicotine (Nicotine 21 Mg Patch) 21 mg TD DAILY [facility] Last Admin: 07/07/20 09:11 Dose: 21 mg Documented by: Nutritional Formula (Lactose Free) (Ensure Enlive 120 Ml Liquid) 120 ml PO 4X/DAY [facility] Last Admin: 07/07/20 09:10 Dose: Not Given Documented by: Ondansetron HCl (Ondansetron 8 Mg Tablet) 8 mg PO Q8H PRN PRN PRN Reason: NAUSEA Senna (Senna Tablet) 2 tablet PO QHS PRN PRN Reason: Constipation Sodium Chloride (0.9% Saline Lock 10 Ml Syringe) 10 - 40 ml IV UD PRN PRN Reason: SALINE FLUSH Last Admin: 07/04/20 20:02 Dose: 10 ml Documented by: Trazodone HCl (Trazodone 100 Mg Tablet) 100 mg PO QHS PRN PRN PRN Reason: INSOMNIA Last Admin: 07/06/20 21:26 Dose: 100 mg Documented by: Discharge Diet: No Restrictions Primary Care Physician: Care Physician,No Primary [Primary Care Provider] - Please Follow Up With: 180 When: as scheduled Disposition: Home Minutes spent on discharge:: 35 Patient Condition:: Stable Medical Necessity - Tobacco Use Smoking Status: Current every day smoker Tobacco Use: Cigarettes Meaningful Use Info Meaningful Use Diagnoses (Choose all that apply): None applicable Inpatient E&M: 30194 Disch Hosp
[2020-07-07 11:18] VITALS: BP 108/54; PULSE 89; RESP 16; TEMP 36.5; O2SAT 99
== END 2020-07-07 12:10 | disposition home or self-care (01) | DRG 773 ==
LOC: ED 16:38 → MS3 16:59
PROVIDERS: Admitting Provider Internal Medicine; Emergency Provider Emergency Medicine; Visit Provider Internal Medicine
DX: F11.23 Opioid dependence with withdrawal (principal); F17.210 Nicotine dependence, cigarettes, uncomplicated; Z68.1 Body mass index [BMI] 19.9 or less, adult; F14.10 Cocaine abuse, uncomplicated; E43 Unspecified severe protein-calorie malnutrition; M54.5 Low back pain
CPT/HCPCS: 80053; 80307; 81001; 82077; 83036; 84703; 85025; 85610; 97802; 99283; J7120; A4216